=== PATIENT | female | born 1990 | race Caucasian/White ===

== ENCOUNTER 2024-02-16 10:22 | Emergency (ER) | payer OTHER, SELFPAY ==
[2024-02-16 10:24] VITALS: BP 128/73
[2024-02-16 10:56] LABS: % Basophils 0.8 % (0-2); % Eosinophils 2.5 % (0-6); % Immature Granulocytes 0.2 % (0-0.5); % Lymphocytes 33.7 % (20.5-51.1); % Monocytes 9.2 % (1.7-9.3); % Neutrophils 53.6 % (42.2-75.2); Absolute Eosinophils 0.1 10^3/uL (0-0.7); Absolute Lymphocytes 1.8 10^3/uL (1.2-3.4); Absolute Monocytes 0.5 10^3/uL (0.1-0.6); Absolute Neutrophils 2.8 10^3/uL (1.4-6.5); Hematocrit 40.2 % (37.0-47.0); Mean Corp Hgb Conc. 34.8 g/dL (33.0-37.0); Mean Corpuscular Volume 89.1 fL (81.0-99.0); Mean Platelet Volume 12.7 fL (7.4-10.4); Nucleated Red Blood Cells % 0 %; Platelet Count 141 10^3/uL (130-400); Red Blood Cell Count 4.51 10^6/uL (4.20-5.40); White Blood Cell Count 5.2 10^3/uL (4.8-10.8)
[2024-02-16 11:16] LABS: ALT (SGPT) 26 U/L (0-35); AST (SGOT) 28 U/L (14-36); Albumin 4.4 g/dl (3.5-5.0); Alkaline Phosphatase 40 U/L (38-126); Blood Urea Nitrogen 17 mg/dl (7-17); Calcium 9.1 mg/dl (8.4-10.2); Carbon Dioxide 27 mmol/L (22-30); Chloride 102 mmol/L (98-107); Glucose 95 mg/dl (70-99); Potassium 4.5 mmol/L (3.5-5.1); Sodium 139 mmol/L (135-145); Total Bilirubin 0.6 mg/dl (0.2-1.3); Total Protein 7.1 g/dl (6.3-8.2); eGFR > 60.00
--- NOTE | 2024-02-16 11:28 | ED.GENMED ---
History of Present Illness
<Marika Payan PA-C - Last Filed: 02/16/24 17:43>
General
Chief Complaint: Problems
Source: patient
Exam Limitations: none
Time Seen by Provider: 02/16/24 11:27
Nursing documentation reviewed up to this point in time: agreed with
History of Present Illness
History of Present Illness:
33-year-old G5, P2 female with a past medical history of placenta previa presenting emergency department today with concerns of vaginal bleeding that started last night. Patient states that since it has started is gotten heavier. Patient states
that she had 8 positive at home test. Patient has not yet seen OB to confirm this. Patient last menstrual period was 01/16/2024 and estimates to be 5 weeks . Patient has no abdominal pain, fevers or chills, no nausea or vomiting.
Patient denies any diarrhea or constipation. Patient denies any hematuria, burning with urination, abnormal vaginal discharge. Patient denies any back pain. Patient abdominal pain, dizziness, lightheadedness, syncopal episodes.
Past History
<Marika Payan PA-C - Last Filed: 02/16/24 17:43>
Past History
ED Past Medical History: None
ED Past Surgical History: None
Social History
Tobacco: Non-smoker
Alcohol: None
Drug: None
Personal:
Living: with family
Employment: Other (Homemaker)
Family History
Family History: Diabetes and Hypertension
Review of Systems
<Marika Payan PA-C - Last Filed: 02/16/24 17:43>
Review of Systems
All Other Systems: ROS reviewed and negative except as documented in HPI and ROS
Phy Exam
<Marika Payan PA-C - Last Filed: 02/16/24 17:43>
Physical Exam
Physical Exam:
General: Patient is well appearing and in no acute distress; non-toxic
Skin: Warm and dry, no rashes or lesions
Head: Normocephalic, atraumatic
Eyes: Sclera non-icteric. EOMs intact. PERRLA.
Cardiac: Regular rate and rhythm, no murmurs
Pulm: Normal respiratory effort
Abdomen: No abdominal tenderness to palpation, no palpable abdominal masses
Neuro: CN II-XII intact, no focal neurologic deficits.
Psychiatric: Appropriate mood and affect.
Course
<Marika Payan PA-C - Last Filed: 02/16/24 17:43>
Orders/Labs/Results
Orders:
Orders
02/16/24 10:34
Beta HCG Quantitative Urgent
Is this a screen?: No
Complete Blood Count/With Diff Urgent
Comprehensive Metabolic Panel Urgent
02/16/24 10:39
US Pelvis W Transvag Combined Urgent
Reason For Exam: 4-5 weeks preg and bleeding
02/16/24 12:57
Consult CUSTODIAL FOREMAN [CUSTODIAL FOREMAN CONSULT] Urgent
Consulting Provider: Brittany Wilson
Was physician already notified: Yes
02/16/24 15:13
Type+Screen Urgent
02/16/24 15:29
ABO2 Stat
BBK Wristband Number:
Associate notified that ABO2 has been ordered: [id number]
Date: 02/16/24
Time: 15:23
Receivables Specialist ID: [id number]
Abnormal Lab Results
02/16/24
10:34
MPV 12.7 H fL
(7.4-10.4)
02/16/24 10:34
02/16/24 10:34
Vital Signs
Initial and Last Documented VS:
Initial Vital Signs
Temp Pulse Resp BP Pulse Ox
98.8 F 70 16 128/73 100
02/16/24 10:24 02/16/24 10:24 02/16/24 10:24 02/16/24 10:24 02/16/24 10:24
Last Documented Vital Signs
Temp Pulse Resp BP Pulse Ox
98.8 F 72 15 125/70 100
02/16/24 10:24 02/16/24 14:21 02/16/24 14:21 02/16/24 14:21 02/16/24 14:21
Information
Weeks gestation: N/A
Location: N/A
<Gus Andersen MD - Last Filed: 02/16/24 15:03>
Orders/Labs/Results
Orders:
Orders
02/16/24 10:34
Beta HCG Quantitative Urgent
Is this a screen?: No
Complete Blood Count/With Diff Urgent
Comprehensive Metabolic Panel Urgent
02/16/24 10:39
US Pelvis W Transvag Combined Urgent
Reason For Exam: 4-5 weeks preg and bleeding
02/16/24 12:57
Consult CUSTODIAL FOREMAN [CUSTODIAL FOREMAN CONSULT] Urgent
Consulting Provider: Brittany Wilson
Was physician already notified: Yes
02/16/24 15:13
Type+Screen Urgent
02/16/24 15:29
ABO2 Stat
BBK Wristband Number:
Associate notified that ABO2 has been ordered: [id number]
Date: 02/16/24
Time: 15:23
Receivables Specialist ID: [id number]
Abnormal Lab Results
02/16/24
10:34
MPV 12.7 H fL
(7.4-10.4)
02/16/24 10:34
02/16/24 10:34
Vital Signs
Initial and Last Documented VS:
Initial Vital Signs
Temp Pulse Resp BP Pulse Ox
98.8 F 70 16 128/73 100
02/16/24 10:24 02/16/24 10:24 02/16/24 10:24 02/16/24 10:24 02/16/24 10:24
Last Documented Vital Signs
Temp Pulse Resp BP Pulse Ox
98.8 F 72 15 125/70 100
02/16/24 10:24 02/16/24 14:21 02/16/24 14:21 02/16/24 14:21 02/16/24 14:21
<Marika Payan PA-C - Last Filed: 02/16/24 17:43>
MDM/Problems Addressed
Differential Diagnosis Includes:
dd include implantation bleeding, spontaneous , ectopic , dysmenorrhea
MDM/Problems Addressed:
33-year-old G5, P2 female with a past medical history of placenta previa, preeclampsia presenting emergency department today with concerns of vaginal bleeding that started last night. Patient had positive at-home test and estimates that
she is 5 weeks . She is well-appearing on exam her vitals are stable she has no abdominal tenderness. Here emergency department, her beta hCG is 16, and she did obtain a pelvic ultrasound which revealed a of unknown location with
a right adnexal cystic lesion mildly suspicious for early ectopic with differentials including early intrauterine or missed . CUSTODIAL FOREMAN consulted.
CUSTODIAL FOREMAN did evaluate patient in the emergency department today he recommended outpatient follow-up with her CUSTODIAL FOREMAN in 48 hours for repeat beta-hCG. I stressed to patient that if she was not able to make a follow-up, she should report back to
emergency department. Patient expressed understanding. Return precautions discussed. Patient stable for discharge.
Chronic conditions affecting care:
n/a
Acute Exacerbation and/or Progression of Chronic Illness:
n/a
<Marika Payan PA-C - Last Filed: 02/16/24 17:43>
*Pulse Oximetry
Patient hypoxic: no
*Critical Care Note
Total Time (30-74mins, 75-104mins- exclusive of procedures): Not Applicable
Data Reviewed
Review of Other/Old Records Reveals: Records (Reviewed ER physician documentation from 09/07/2022 )
Source: patient and records
<Marika Payan PA-C - Last Filed: 02/16/24 17:43>
Patient Management
Escalation/DeEscalation of care consider admission/obs:
Admit not indicated, patient stable for discharge
ED Attending Note
<Marika Payan PA-C - Last Filed: 02/16/24 17:43>
-
Portions of this chart may have been created with voice recognition software.� Occasional wrong word or��sound alike� substitutions may have occurred due to the inherent limitations of voice recognition software.
<Gus Andersen MD - Last Filed: 02/16/24 15:03>
ED Attending Note
Patient seen and examined by attending physician: Yes
ED Attending Note:
I have seen and evaluated the patient with a [id number] encounter. I have spoken to the advance practicer provider and involved in the medical history, the physical exam, medical decision making.
Evaluation and management service: agree unless noted differently below.
Results interpretation: agree unless noted differently below.
Focused HPI: 33-year-old female with no significant chronic medical history who is A2 who had positive test x 4 over the past few days presents to the ER for evaluation of some vaginal spotting. Patient reports that her last
menstrual period was 01/16/2024. She says that she was a few days late and had some light spotting which is atypical for her normal menstrual periods. For this reason she took a test which was positive. Came to the ER for assessment.
She denies any abdominal pain. Denies any flank pain. No nausea or vomiting. No other complaints.
Physical exam: Awake alert not in distress. Vital signs normal. Minimally tender across lower abdomen, no peritoneal signs.
Medical Decision Makin-year-old female A2 whose last menstrual period was roughly 4 weeks ago and who had multiple positive tests over the past few days presents for evaluation of spotting. Vitals normal. Exam as above. Labs
were sent off including a CBC and a CMP, hCG quant. Sent for pelvic ultrasound.
CBC and CMP unremarkable�notably normal hemoglobin. hCG quant 16. Pelvic ultrasound however showed no IUP, cystic adnexal mass at least somewhat concerning for early ectopic . Case discussed with CUSTODIAL FOREMAN to evaluate.
Discharge Plan
Departure
Patient Disposition: Home (Routine Discharge)
Date of Disposition: 02/16/24
Time of Disposition: 15:13
Patient with high blood pressure during this ER visit?: Yes
Condition: Good
Discharge Problem:
Vaginal bleeding
Instructions: Threatened Miscarriage (DC), Bleeding in early
Prescriptions:
No Action
cephalexin [Keflex] 500 MG capsule
500 mg PO QID Qty: 40 0RF
methylprednisolone [Medrol (Loc)] 4 MG tablets,dose pack
4 tab PO . DIRECT Qty: 1 0RF
amoxicillin [Amoxil] 875 MG tablet
875 mg PO BID Qty: 20 0RF
hydrocodone-acetaminophen 5-325 mg tablet
1 tab PO Q6H PRN (Reason: pain) Qty: 10 0RF
valacyclovir [Valtrex] 1 gram tablet
1,000 mg PO BID Qty: 20 0RF
hydrocodone-acetaminophen 5-300 mg tablet
1 tab PO BID PRN (Reason: pain) Qty: 10 0RF
Referrals:
UNKNOWN - PT NOT,INTERVIEWE [Unknown Provider] -
Activity Restrictions/Additional Instructions:
Please call your CUSTODIAL FOREMAN to have repeat hCG performed in 48 hours. This is very important. Please report to the emergency department if you cannot have this performed.
Please return emergency department should you experience abdominal pain, pelvic pain, persistent bleeding, dizziness, lightheadedness, fainting spells, chest pain, shortness of breath, or any other signs or symptoms concerning to you.
Interventions
Interventions:
*Risk Screen - Suicide Last Done: 02/16/24 10:26
*General Assessment Last Done: 02/16/24 10:26
*Neglect/Abuse Screening Last Done: 02/16/24 10:26
ED- Fall Risk Assessment Last Done: 02/16/24 14:19
*ED COVID-19 Vaccine History Last Done: 02/16/24 10:26
*Nursing Disposition Last Done: 02/16/24 16:25
ED-Female Genitourinary Assessment Last Done: 02/16/24 14:19
Discharge Date and Time
Discharge Date/Time: 02/16/24 16:26
Print Language: MOHAWK
[2024-02-16 11:32] LABS: Beta HCG Quantitative 16.65 mIU/ml
[2024-02-16 14:21] VITALS: BP 125/70
--- NOTE | 2024-02-16 18:57 | CON.MD ---
Consultation - Medical
-
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 She states her LMP was approx 8/16 and she had a +UPT at home but last night and today has noticed blood whenever she wipes. She has not had a pad on, has not been soaking through her
clothes. She notices mild bloating but otherwise denies abdominal pain. No n/v/f/c.
PMHx:none
PSHx: none
POBHx: x2
FHx: DM, HTN
SHx: Neg x3
Meds: None
All: NKDA
Vitals 125/70 P72 R15 T98.8
Gen: nad, sitting up in bed
Abd: soft, nt, nd
CBC: 5.2/14.0/141
AST 28
ALT 26
Cr: 0.7
HC.6
Pelvic US 02/16/24: No IUP noted, Right ovary 2.8cm with a minimally complex right paraovarian cyst measuring 1.3cm without internal or surrounding color flow- ? early ectopic . Left ovary 3.6cm normal
A/P: 33yo with of unknown location
-I reviewed the patients HCG and US findings with her. I suspect this is more than likely an early miscarriage/chemical . Overall the suspicion for an ectopic is low, however she does warrant close follow up. Advised she is to
have her HCG rechecked by her OB in 2 days- she needs to call their office today to get this ordered. If HCG is decreasing then this is likely a miscarriage. If it is plateaued then concern for ectopic will be higher. If it increases, then
this could be c/w a very early normal . reviewed reasons to return to the ER- Excessive bleeding or severe pain. At this point she is hemodynamically stable and it is too early to tell exactly what it going on so no immediate intervention
other than HCG trending is warranted at this time.
time with patient, documentation and review of imaging= 30 mins
== END 2024-02-16 16:26 | disposition home or self-care (01) ==
LOC: EMR 10:22
PROVIDERS: CONSULT PHYSICIAN Obstetrics & Gynecology; EMERGENCY PHYSICIAN Emergency Medicine; FAMILY PHYSICIAN Family Medicine
DX: O20.9 Hemorrhage in early pregnancy, unspecified (principal); O26.891 Other specified pregnancy related conditions, first trimester; Z3A.01 Less than 8 weeks gestation of pregnancy; R03.0 Elevated blood-pressure reading, without diagnosis of hypertension
CPT/HCPCS: 99284; 76830; 76856; 80053; 84702; 85025; 86850; 86900; 86901

== ENCOUNTER 2024-09-18 13:30 | Emergency (ER) | payer OTHER, SELFPAY ==
[2024-09-18 13:32] VITALS: BP 134/72
--- NOTE | 2024-09-18 14:29 | ED.GENMED ---
History of Present Illness
General
Chief Complaint: Fainting Sensation
Source: patient and family (mother)
Exam Limitations: none
Time Seen by Provider: 09/18/24 14:28
Nursing documentation reviewed up to this point in time: agreed with
History of Present Illness
History of Present Illness:
33-year-old female G3, P2 at 27 weeks, reports 2-3 near syncope episodes, feeling sweaty today. First episode was this morning. He has had these episodes throughout the . He has a history of preeclampsia and having been induced for both
of her prior pregnancies. She denies any chest pain, vaginal bleeding, abdominal or pelvic pain
Past History
Past History
ED Past Medical History: None
ED Past Surgical History: None
Social History
Tobacco: Non-smoker
Alcohol: None
Drug: None
Personal:
Living: with family
Employment: Other (Homemaker)
Family History
Family History: Diabetes and Hypertension
Review of Systems
Review of Systems
Allergies reviewed?: Yes
All Other Systems: Not applicable
Constitutional: Reports no symptoms
EENT: Reports no symptoms
Respiratory: Reports no symptoms
Cardiac: Reports diaphoresis and other (Lightheaded)
ABD/GI: Reports no symptoms; Denies abdominal pain, nausea or vomiting
: Reports no symptoms
Musculoskeletal: Reports no symptoms
Skin: Reports no symptoms
Neurological: Reports no symptoms
Endocrine: Reports no symptoms
Hematologic/Lymphatic: Reports no symptoms
Psychiatric: Reports no symptoms
Phy Exam
Physical Exam
Physical Exam:
Physical Exam
General: no apparent distress, not acutely ill
Neck: supple. no meningeal signs. normal posterior pharynx
Heart: s1/s2 regular rate and rhythm, no murmur. equal radial
pulses.
HEENT: Pupils equal round reactive to light, EOMI
Lungs: no acute respiratory distress. clear bilaterally
Abdomen: normal bowel sounds. not tender. no CVAT, gravid uterus
Neuro: alert and oriented. no focal neurological deficits cranial nerves II through XII intact
Skin: no rash
Psychiatric: well kept. interactive and cooperative
Extremities: no edema. no calf tenderness. negative homans. good distal pulses
Course
Orders/Labs/Results
Orders:
Orders
09/18/24 13:37
Electrocardiogram (*1) Urgent
Reason for Study: Vertigo / Dizzy
EKG- Treatment ONCE
09/18/24 14:30
Heart Tones ONCE
IV Insert/Care/Rem.- Treatment PRN
Lactated Ringers [Lr] 1,000 ml IV BOLUS
09/18/24 15:20
Complete Blood Count/With Diff Urgent
Comprehensive Metabolic Panel Urgent
Urinalysis Reflex To Culture Urgent
Date Specimen was Collected: 09/18/24
Time Specimen was Collected: 14:57
Abnormal Lab Results
09/18/24
15:20
WBC 11.7 H 10^3/uL
(4.8-10.8)
MPV 12.0 H fL
(7.4-10.4)
Abs Immat Gran (auto) 0.1 H 10^3/uL
(0-0.05)
Absolute Neuts (auto) 9.3 H 10^3/uL
(1.4-6.5)
Absolute Monos (auto) 0.7 H 10^3/uL
(0.1-0.6)
Neutrophils % 79.7 H %
(42.2-75.2)
Lymphocytes % 11.9 L %
(20.5-51.1)
Sodium 134 L mmol/L
(135-145)
Creatinine 0.5 L mg/dL
(0.6-1.0)
Albumin 3.3 L g/dl
(3.5-5.0)
09/18/24 15:20
09/18/24 15:20
Vital Signs
Initial and Last Documented VS:
Initial Vital Signs
Temp Pulse Resp BP Pulse Ox
98.2 F 83 18 134/72 99
09/18/24 13:32 09/18/24 13:32 09/18/24 13:32 09/18/24 13:32 09/18/24 13:32
Last Documented Vital Signs
Temp Pulse Resp BP Pulse Ox
98.2 F 75 16 106/63 97
09/18/24 13:32 09/18/24 15:30 09/18/24 15:38 09/18/24 15:21 09/18/24 16:00
MDM/Problems Addressed
Differential Diagnosis Includes:
Cardiac dysrhythmia, hypovolemia
MDM/Problems Addressed:
33-year-old female G3, P2 at 27 weeks with near syncope. No signs of dysrhythmia or electrolyte abnormality. Monitored for 2 hours in the ED, normal cardiac monitoring and monitoring. Stable for discharge. Discussed with Dr. Pelaez, who
agrees with this plan. Patient will follow-up with her OB at [facility].
*Pulse Oximetry
Patient hypoxic: no
*EKG
Interpreted by ED Provider?: Yes
EKG Intrepretation Date: 09/18/24
EKG Intrepretation Time: 13:40
Interpretation: normal
Comparison EKG: no changes
Heart Rate: 73
Rate: normal
Rhythm: sinus
[place]: normal axis
Interval: normal interval
QRS Pattern: normal QRS
Ischemia: no ischemia
*Software Reliability Engineer Interpretation
Rate: normal
Interpretation: normal
Heart Rate: 78
Rhythm: sinus
*Critical Care Note
Total Time (30-74mins, 75-104mins- exclusive of procedures): Not Applicable
Patient Management
Social determinants of health affecting care: Living situation
Discussion with other providers: Client Account Representative (DEPUTY SHERIFF/INVESTIGATOR, Dr. Bridges)
Escalation/DeEscalation of care consider admission/obs:
Admit not indicated
ED Attending Note
-
Portions of this chart may have been created with voice recognition software.� Occasional wrong word or��sound alike� substitutions may have occurred due to the inherent limitations of voice recognition software.
Discharge Plan
Departure
Patient Disposition: Home (Routine Discharge)
Date of Disposition: 09/18/24
Time of Disposition: 17:05
Patient with high blood pressure during this ER visit?: No
Condition: Good
Discharge Problem:
Near syncope, Third trimester
Prescriptions:
No Action
cephalexin [Keflex] 500 MG capsule
500 mg PO QID Qty: 40 0RF
methylprednisolone [Medrol (Loc)] 4 MG tablets,dose pack
4 tab PO . DIRECT Qty: 1 0RF
amoxicillin [Amoxil] 875 MG tablet
875 mg PO BID Qty: 20 0RF
hydrocodone-acetaminophen 5-325 mg tablet
1 tab PO Q6H PRN (Reason: pain) Qty: 10 0RF
valacyclovir [Valtrex] 1 gram tablet
1,000 mg PO BID Qty: 20 0RF
hydrocodone-acetaminophen 5-300 mg tablet
1 tab PO BID PRN (Reason: pain) Qty: 10 0RF
Referrals:
Yanely Brooks MD [Family Provider] -
Activity Restrictions/Additional Instructions:
Follow-up with your DEPUTY SHERIFF/INVESTIGATOR in 1 week. Return for any concerns.
Interventions
Interventions:
*Risk Screen - Suicide Last Done: 09/18/24 13:32
*General Assessment Last Done: 09/18/24 13:32
*Neglect/Abuse Screening Last Done: 09/18/24 13:32
*ED- Fall Risk Assessment Last Done: 09/18/24 15:05
*ED COVID-19 Vaccine History Last Done: 09/18/24 13:32
ED- Cardiac Assessment Last Done: 09/18/24 15:35
ED- Neurological Assessment Last Done: 09/18/24 15:35
Discharge Date and Time
Print Language: SLOVAK
[2024-09-18] MEDS: LR 1000 IV (15:17)
[2024-09-18 15:21] VITALS: BP 106/63
[2024-09-18 15:29] LABS: % Basophils 0.4 % (0-2); % Eosinophils 1.6 % (0-6); % Immature Granulocytes 0.5 % (0-0.5); % Lymphocytes 11.9 % (20.5-51.1); % Monocytes 5.9 % (1.7-9.3); % Neutrophils 79.7 % (42.2-75.2); Absolute Basophils 0.1 10^3/uL (0-0.2); Absolute Eosinophils 0.2 10^3/uL (0-0.7); Absolute Immature Granulocytes 0.1 10^3/uL (0-0.05); Absolute Lymphocytes 1.4 10^3/uL (1.2-3.4); Absolute Monocytes 0.7 10^3/uL (0.1-0.6); Absolute Neutrophils 9.3 10^3/uL (1.4-6.5); Hematocrit 37.2 % (37.0-47.0); Hemoglobin 13.1 g/dL (12.0-16.0); Mean Corp Hgb Conc. 35.2 g/dL (33.0-37.0); Mean Corpuscular Hgb 30.3 pg (27.0-31.0); Mean Corpuscular Volume 85.9 fL (81.0-99.0); Nucleated Red Blood Cells % 0 %; Platelet Count 141 10^3/uL (130-400); Red Blood Cell Count 4.33 10^6/uL (4.20-5.40); Red Cell Dist. Width 11.9 % (11.5-14.5); White Blood Cell Count 11.7 10^3/uL (4.8-10.8)
[2024-09-18 15:32] LABS: Urine Albumin Negative (Neg - Trace); Urine Bilirubin Negative (Negative); Urine Character Slightly Cloudy (Clear); Urine Color Yellow; Urine Glucose Negative (Negative); Urine Ketone Negative (Negative); Urine Leukocyte Negative (Negative); Urine Nitrite Negative (Negative); Urine Occult Blood Negative (Negative); Urine Urobilinogen Negative (Neg - 1+)
[2024-09-18 15:40] LABS: ALT (SGPT) 19 U/L (0-35); AST (SGOT) 23 U/L (14-36); Albumin 3.3 g/dl (3.5-5.0); Alkaline Phosphatase 65 U/L (38-126); Blood Urea Nitrogen 11 mg/dl (7-17); Calcium 8.6 mg/dl (8.4-10.2); Carbon Dioxide 23 mmol/L (22-30); Chloride 105 mmol/L (98-107); Glucose 82 mg/dl (70-99); Potassium 4.2 mmol/L (3.5-5.1); Sodium 134 mmol/L (135-145); Total Bilirubin 0.4 mg/dl (0.2-1.3); Total Protein 6.4 g/dl (6.3-8.2); eGFR > 60.00
[2024-09-18 16:00] VITALS: BP 103/64
[2024-09-18 17:28] VITALS: BP 103/63
== END 2024-09-18 17:43 | disposition home or self-care (01) ==
LOC: EMR 13:30
PROVIDERS: EMERGENCY PHYSICIAN Emergency Medicine; FAMILY PHYSICIAN Family Medicine
DX: O26.892 Other specified pregnancy related conditions, second trimester (principal); Z3A.27 27 weeks gestation of pregnancy; R55 Syncope and collapse; F41.9 Anxiety disorder, unspecified; F32.A Depression, unspecified
CPT/HCPCS: 99284; 96360; 80053; 81003; 85025; 93005